=== PATIENT | female | born 1985 | race African-American/Black ===

== ENCOUNTER 2016-08-23 05:12 | Day surgery (SDC) | payer OTHER ==
[2016-08-21 12:37] VITALS: BMI 18.7
[2016-08-23] MEDS ORDERED: MIDAZOLAM HCL 2 MG/2 ML SINGLE DOSE VIAL ONE (07:43)
--- NOTE | 2016-08-23 08:01 | HP ---
Past Medical History - Primary Care Physician PCP:: Falguni Varghese - Admission Chief Complaint: 31 yrs h/f , LMP 08/17/16 , requests for tubal ligation History of Present Illness: pt has care at [address] [place] [address] . [facility] MH : 28 days x7 days, Mild cramps [facility] Ob Hx: :3 G1 2009 Male . G2 Ind Ab , D&C done G3 2012 Female . G4 Sp Ab G5 05/02/2016 Male History Source: Patient, Medical Record Limitations to Obtaining History: No Limitations - Past Medical History GENERAL MANAGER: No: Dementia Cardiovascular: Yes: HTN (post HTN after last 2 deliveries) Pulmonary: No: Asthma Hepatobiliary: Yes: Cholelithiasis Renal/: No: UTI Reproductive: Yes: Other (h/o Vaginitis( BV) treated with Flagyl 500 mg bid x7days 0n 08/03/16. Last Pap 11/16/2015 NILM) ...: 5 ...Para: 3 ...Term: 3 (3 ) ...Spon : 1 ...Induced : 1 ...LMP: 08/17/16 Heme/Onc: Yes: Anemia Psych: Yes: Depression (pp depression, no meds) - Past Surgical History Past Surgical History: Yes: None Hx Myomectomy: No Hx Transabdominal Cerclage: No - Smoking History Smoking history: Current some day smoker Have you smoked in the past 12 months: Yes Aproximately how many cigarettes per day: 5 If you are a former smoker, when did you quit?: when she found out she was - Alcohol/Substance Use Hx Alcohol Use: Yes History of Substance Use: reports: None - Social History History of Recent Travel: No Home Medications - Allergies Allergies/Adverse Reactions: Allergies Allergy/AdvReac Type Severity Reaction Status Date / Time No Known Allergies Allergy Verified 08/23/16 07:08 - Home Medications Home Medications: Ambulatory Orders Ferrous Sulfate [Feosol] 325 mg PO BID 04/09/16 Vitamins (Sjr) - 1 tab PO DAILY #30 tablet 05/03/16 Physical Exam-[employer] Vital Signs: Vital Signs Temperature 97.7 F 08/23/16 07:03 Pulse Rate 68 08/23/16 07:03 Respiratory Rate 20 08/23/16 07:03 Blood Pressure 130/89 08/23/16 07:03 O2 Sat by Pulse Oximetry (%) 100 08/23/16 07:02 Constitutional: Yes: Well Nourished Eyes: Yes: WNL HENT: Yes: WNL Neck: Yes: WNL Cardiovascular: Yes: WNL Respiratory: Yes: WNL, CTA Bilaterally Gastrointestinal: Yes: WNL, Normal Bowel Sounds, Soft. No: Distention Renal/: Yes: WNL. No: CVA Tenderness - Left, CVA Tenderness - Right Pelvis: Yes: WNL External Genitalia: Yes: Normal Internal Exam Deferred: Yes Vaginal Exam: Yes: Normal Cervix: Yes: Normal Uterus: Yes: Normal, Freely Moveable, Anteverted, Firm. No: Tender Adnexa: Not Palpable: Bilateral Breast(s): Yes: WNL. No: Discharge from Nipple, Mass, Skin Changes Extremities: Yes: WNL. No: Calf Tenderness Edema: No Integumentary: Yes: WNL Neurological: Yes: WNL ...Motor Strength: WNL Psychiatric: Yes: WNL Labs: Laboratory Tests 08/21/16 08/21/16 08/21/16 12:16 12:16 12:16 WBC 3.7 L D Hgb 13.7 D Hct 41.6 D Plt Count 272 INR 1.06 Sodium 141 Potassium 4.2 D Chloride 107 Carbon Dioxide 23 BUN 18 D Creatinine 0.9 D Random Glucose 83 D AST 36 D ALT 38 D Alkaline Phosphatase 77 Beta HCG, Quant < 1.0 Urine Protein Urine Ketones Urine Nitrite Urine Urobilinogen Ur Leukocyte Esterase Urine RBC Urine WBC Urine HCG, Qual 08/21/16 08/23/16 13:10 06:16 WBC Hgb Hct Plt Count INR Sodium Potassium Chloride Carbon Dioxide BUN Creatinine Random Glucose AST ALT Alkaline Phosphatase Beta HCG, Quant Urine Protein 1+ H Urine Ketones 1+ H Urine Nitrite Negative Urine Urobilinogen 2.0 e.u/dl H Ur Leukocyte Esterase Trace H D Urine RBC 8 Urine WBC 1 Urine HCG, Qual Negative Problem List - Problem (1) Multiparity Code(s): Z64.1 - PROBLEMS RELATED TO MULTIPARITY Assessment/Plan 31 yrs , requests for BTL Plan pelvicopic BTL ( Bipolar fulgration )
[2016-08-23] MEDS ORDERED: PROPOFOL 20 ML ONE ×2 (08:06→08:21)
[2016-08-23] MEDS ORDERED: ROCURONIUM BROMIDE 50 MG/5 ML VIAL ONE (08:06)
[2016-08-23] MEDS ORDERED: ceFAZolin SODIUM 1 GM VIAL IVPB ONE (08:19)
[2016-08-23] MEDS ORDERED: ESMOLOL HCL 10 ML ONE (09:00)
[2016-08-23] MEDS ORDERED: NEOSTIGMINE METHYLSULFATE 0.5 MG/ML - 10 ML MDV ONE (09:00)
[2016-08-23] MEDS ORDERED: GLYCOPYRROLATE 0.2 MG/1 ML VIAL ONE ×2 (09:00)
[2016-08-23] MEDS ORDERED: ceFAZolin SODIUM 1 GM VIAL ONE (09:00)
[2016-08-23] MEDS ORDERED: ONDANSETRON 4 MG/2 ML VIAL IVPUSH PRN (09:15)
[2016-08-23] MEDS ORDERED: PROMETHAZINE HCL 25 MG/1 ML VIAL IVPUSH PRN (09:15)
[2016-08-23] MEDS ORDERED: oxyCODONE HCL 5 MG TABLET PO PRN (09:15)
--- NOTE | 2016-08-23 09:28 | OP ---
Operative Note - Note: Operative Date: 08/23/16 Pre-Operative Diagnosis: multiparity, voluntory sterlization Operation: Pelviscopic Bilateral Bipolar Tubal fulgration Findings: Both Tubes & ovaries normal. Ut AV , NS Mobile utero cervical length 6.5 cm . Both tubes were fulgarated with bipolar cautery in isthmic ampulary junction Surgeon: Falguni Varghese Anesthesiologist/CNC SPECIALIST: George Lennon Anesthesia: General Estimated Blood Loss (mls): 2 Drains, Volume Out (mls): 50 Fluid Volume Replaced (mls): 600 (iv ancef 1 gm ivpb given ) Operative Report Dictated: Yes
[2016-08-23] MEDS ORDERED: ACETAMINOPHEN 325 MG TABLET (FP) PO PRN (09:34)
[2016-08-23] MEDS ORDERED: IBUPROFEN 400 MG TABLET (FP) PO PRN (09:34)
[2016-08-23] MEDS ORDERED: PRENATAL VITAMINS W/ FOLIC ACID TABLET (FP) PO SCH (10:00)
[2016-08-23 10:30] VITALS: TEMP 98.2
[2016-08-23] MEDS ORDERED: IBUPROFEN 600 MG TABLET (FP) PO PRN (10:35)
--- NOTE | 2016-08-23 10:44 | OP ---
DATE OF OPERATION: 08/23/2016 PREOPERATIVE DIAGNOSIS: Multiparity, voluntary sterilization. OPERATION DONE: Pelviscopic bilateral bipolar tubal fulguration. SURGEON: Janet Gaitan MD ANESTHESIOLOGIST: George Lennon MD ANESTHESIA: General FINDINGS: This is a 31-year-old, 5 para 3-0-2-3, LD in April,, and she requests for voluntary sterilization. Her LMP is August 17, 2016, and beta hCG is negative PROCEDURE: Patient was taken to the operating room table. General anesthesia was given. A modified lithotomy position was given. Abdomen, pubis, perineum, vagina painted with Betadine and draped in the usual manner. Time-out was done, and IV Ancef was given by the anesthesiologist. Then, pelvic examination was done. Uterus was anteverted, normal-sized, mobile. Adnexa was not palpable. Weighted speculum was put. Anterior lip of the cervix was held with a single-tooth tenaculum, and then uterocervical length was taken 6.5 cm, and HUMI cannula was adjusted and entered , sat into the uterine cavity. The tenaculum and speculum were removed. A Jason catheter was inserted. Gloves were changed, position was readjusted, and then proceeded with a pelviscopy. A small incision was made just below the umbilicus, a 5-mm incision was made, and then, 5-mm trocar and cannula were introduced into the peritoneal cavity. Peritoneal insertion was confirmed, and then, CO2 was insufflated in with the peritoneal cavity, and the peritoneal cavity was inspected. Uterus was normal. Both tubes and ovaries were normal. Cul-se-sac was free, and upper abdomen was free. Then, 2nd incision was made in the suprapubic area, 2nd 5-mm trocar and cannula were introduced and Kleppinger was introduced. Then, with a bipolar Kleppinger, Kleppinger was used and bipolar cautery was used. First right tube and then, the left tube in the stomach ampullary region were fulgurated with bipolar cautery. Hemostasis was verified. Again, inspection of the peritoneal cavity was done, and the trocar and cannula were removed from the suprapubic area, CO2 was expelled out through the trocar, and 2nd trocar was removed. Umbilical and suprapubic incisions were closed with Dermabond. Jason catheter was removed. Urine output was 50 mL. HUMI cannula was also removed. Patient tolerated the procedure well and she was transported to the recovery room in stable condition. JANET GAITAN M.D. [id number] MTDD
[2016-08-23] MEDS ORDERED: FERROUS SO4 325 MG TABLET (FP) PO SCH (10:45)
[2016-08-23 13:01] VITALS: BP 133/87; PULSE 64
== END 2016-08-23 12:35 | disposition home or self-care (01) ==
LOC: JASU-SURG 05:12
PROVIDERS: ATTEND Obstetrics & Gynecology
PROC: 0U574ZZ Destruction of Bilateral Fallopian Tubes, Percutaneous Endoscopic Approach (ICD-10-PCS; principal; 2016-08-23 08:00)
DX: Z30.2 Encounter for sterilization (principal)
CPT/HCPCS: 84703; 94760

== ENCOUNTER 2019-04-29 16:17 | Day surgery (SDC) | payer OTHER ==
[2019-04-28 14:31] VITALS: BMI 18.7
[2019-04-29] MEDS ORDERED: MIDAZOLAM HCL 2 MG/2 ML SINGLE DOSE VIAL ONE (21:01)
[2019-04-29] MEDS ORDERED: PROPOFOL 20 ML ONE (21:07)
[2019-04-29] MEDS ORDERED: ceFAZolin SODIUM 1 GM VIAL ONE (21:20)
[2019-04-29] MEDS ORDERED: ONDANSETRON 4 MG/2 ML VIAL IVPUSH PRN (22:33)
[2019-04-29] MEDS ORDERED: oxyCODONE HCL 5 MG TABLET PO PRN (22:33)
[2019-04-29] MEDS ORDERED: LACTATED RINGERS SOLUTION 1,000 ML IV SCH (22:45)
[2019-04-29] MEDS ORDERED: HYDROmorphone HCL/PF 1 MG/ML AMP ONE (22:59)
[2019-04-29] MEDS ORDERED: ACETAMINOPHEN INJECTION 100 ML IVPB ONE (23:33)
[2019-04-30] MEDS ORDERED: DEXAMETHASONE SOD PHOSPHATE 4 MG/1 ML VIAL ONE (00:16)
[2019-04-30] MEDS ORDERED: ONDANSETRON 4 MG/2 ML VIAL ONE ×2 (00:16→01:20)
[2019-04-30] MEDS ORDERED: BUPIVACAINE HCL/PF 2.5 MG/ML - 30 ML VIAL IJ ONE (00:40)
[2019-04-30] MEDS ORDERED: KETOROLAC TROMETHAMINE 30 MG/1 ML VIAL ONE (01:16)
[2019-04-30] MEDS ORDERED: ceFAZolin SODIUM 1 GM VIAL ONE (01:17)
[2019-04-30] MEDS ORDERED: PROPOFOL 20 ML ONE (01:27)
[2019-04-30] MEDS ORDERED: CEFAZOLIN 1 GM in DEXTROSE 5%-WATER - 50 ML IVPB ONE (04:09)
[2019-04-30 07:07] VITALS: BP 125/73; PULSE 78; TEMP 98.5
--- NOTE | 2019-05-08 18:59 | OP ---
DATE OF OPERATION: 04/29/2019 PREOPERATIVE DIAGNOSIS: Laceration left long ring and small finger with likely flexor tendon of the digital nerve injury. POSTOPERATIVE DIAGNOSIS: 1. Left long finger flexor digitorum profundus laceration. 2. Left ring finger flexor digitorum profundus laceration. 3. Left small finger flexor digitorum profundus laceration. 4. Left long finger ulnar digital nerve laceration. 5. Left ring finger radial digital nerve laceration. 6. Left ring finger ulnar digital nerve laceration. 7. Left small finger radial digital nerve laceration. 8. Left small finger ulnar digital nerve laceration. OPERATIVE PROCEDURE: 1. Left long finger flexor digitorum profundus laceration repair in zone 2. 2. Left ring finger flexor digitorum profundus laceration repair in zone 2. 3. Left small finger flexor digitorum profundus laceration repair in zone 2. 4. Repair left long finger ulnar digital nerve. 5. Repair left ring finger radial digital nerve. 6. Left ring finger repair ulnar digital nerve. 7. Repair left small finger radial digital nerve. 8. Repair left small finger ulnar digital nerve. SURGEON: Ngoc Pyle MD. PLASTIC OUTFITTER: YOLANDA Miranda. ANESTHESIA: General anesthesia. COMPLICATIONS: None. ESTIMATED BLOOD LOSS: Minimal. INDICATION FOR PROCEDURE: The patient is a 33-year-old female who sustained the above injury, was indicated for operative treatment. Risks, benefits, and alternatives were discussed with the patient at length. Proper informed consent was obtained. DESCRIPTION OF PROCEDURE: After proper identification of the patient and correct operative site, patient was brought to the operating room and placed supine on the operating room table, all bony prominences well padded. General anesthesia was given, intravenous antibiotics were given. Timeout procedure was performed. Left upper extremity was prepped and draped in the usual sterile fashion. Well padded tourniquet was placed with a sterile prep. Esmarch bandage to exsanguinate the left upper extremity. Tourniquet inflated to 250 mmHg. Patient's lacerations in the volar aspect of the long, ring, and small fingers were opened with blunt dissection. Three injuries that were deep were identified, and therefore the incisions were extended proximally and distally in a Aly fashion. This was done on each finger of the long, ring, and small fingers. At this point, blunt dissection was performed to the subcutaneous tissues, taking care to protect intact structures. In the long finger, laceration of the profundus and superficialis tendon were noted as well as the ulnar digital nerve. The radial digital nerve was found to be intact. The superficialis tendon was found to be lacerated at its bony insertion and therefore was not deemed for repair. The profundus tendon was brought in the field, and the remainder of the superficialis tendon was resected. Part of the amaya was resected in order to achieve room for the repair. This was tentatively held with a needle in preparation for repair. Nerve ends of the ulnar digital nerve were identified and prepared for repair. There was no tension on the repairs. Similar process was repeated with the ring finger with identical findings were found other than the addition of radial digital nerve being lacerated. The same procedure was then performed in the small finger, where again identical findings were found to the ring and long fingers with again the addition of the radial digital nerve laceration. Each of the fingers of the flexor tendons were repaired and fed through the flexor tendon sheath for repair. As these again were found to have FDS lacerations at the insertion with no soft tissue repair, it was decided rather than fill the flexor tendon sheath with this complex repair, that the FDS was resected. At this point, each tendon was prepared for repair and held with a needle. The nerves were then decided to be repaired in a sequential order from the long finger to the small finger. Each digital nerve was repaired with 8-0 nylon suture using operative microscope. Each repair was performed by debriding the nerve ending and slightly flexing the finger and performing simple interrupted suture repairs of the epineurium of the left long finger ulnar digital nerve, ring finger radial digital nerve and ulnar digital nerve, and the small finger radial digital nerve and ulnar digital nerve . Once tension free repair was accomplished, the finger was flexed and extended gently, and there was no tension on the repairs. Attention was now turned to repairing the flexor tendons, where each flexor digitorum profundus tendon to the long, ring, and small fingers were repaired with a 4-0 FiberLoop suture using a Ponce type suture. This provided tension free anastomosis of each tendon. The fingers were then taken through range of motion, and again no tension on the repairs was found, and there was no catching on the flexor tendon sheath. This completed our repair process, and the tourniquet was released. Of note, the branches of the digital artery in each finger were lacerated, but each finger was very well perfused, and immediately had capillary refill after release of the tourniquet. Skin was repaired in each finger using a 5-0 suture as well as Dermabond. Sterile dressings and dorsal splint were placed, and patient was reversed from anesthesia and brought to recovery room in stable condition. She tolerated procedure well. Adam Carolina, the photo studio assistant, was integral throughout the procedure. Procedure could not have been performed without a skilled operative photo studio assistant. NGOC PYLE M.D. [id number]
== END 2019-04-30 09:45 | disposition home or self-care (01) ==
LOC: FASU 16:17
PROVIDERS: ATTEND Orthopaedic Surgery Hand Surgery
PROC: 0LQ80ZZ Repair Left Hand Tendon, Open Approach (ICD-10-PCS; 2019-04-29)
PROC: 0LQ80ZZ Repair Left Hand Tendon, Open Approach (ICD-10-PCS; 2019-04-29)
PROC: 01Q60ZZ Repair Radial Nerve, Open Approach (ICD-10-PCS; 2019-04-29)
PROC: 01Q40ZZ Repair Ulnar Nerve, Open Approach (ICD-10-PCS; 2019-04-29)
PROC: 01Q60ZZ Repair Radial Nerve, Open Approach (ICD-10-PCS; 2019-04-29)
PROC: 01Q40ZZ Repair Ulnar Nerve, Open Approach (ICD-10-PCS; 2019-04-29)
PROC: 0LQ80ZZ Repair Left Hand Tendon, Open Approach (ICD-10-PCS; principal; 2019-04-29 21:29)
DX: S66.123A Laceration of flexor muscle, fascia and tendon of left middle finger at wrist and hand level, initial encounter (principal); S66.125A Laceration of flexor muscle, fascia and tendon of left ring finger at wrist and hand level, initial encounter; S66.127A Laceration of flexor muscle, fascia and tendon of left little finger at wrist and hand level, initial encounter; S64.493A Injury of digital nerve of left middle finger, initial encounter; S64.495A Injury of digital nerve of left ring finger, initial encounter; S64.497A Injury of digital nerve of left little finger, initial encounter; X58.XXXA Exposure to other specified factors, initial encounter; Y93.9 Activity, unspecified; Y92.9 Unspecified place or not applicable
CPT/HCPCS: 84703; 94760; J0131